=== PATIENT | male | born 1970 | race Caucasian/White ===

== ENCOUNTER 2021-03-27 18:11 | Inpatient (IN) | payer BC, OTHER ==
[~2021-03-27] VITALS: Ht 182.9 cm; Wt 135.9 kg
[2021-03-27 18:55] VITALS: BP 171/89
[2021-03-27] MEDS ORDERED: LACTATED RINGERS 1,000 ML IV STA (19:09)
[2021-03-27] MEDS ORDERED: TORADOL IV STA (19:09)
[2021-03-27] MEDS ORDERED: ZOFRAN IV STA (19:09)
--- NOTE | 2021-03-27 19:17 | ER.PDOC ---
General Chief Complaint: Abdomen Pain Stated Complaint: ABD PAIN/NAUSEA Time seen by MD: 19:12 Source: patient Exam Limitations: no limitations History of Present Illness Initial Comments Abdominal pain for 2 days. Pain is located in the epigastric region, does not radiate, no nausea or vomiting and no diarrhea. Severity/Quality: moderate, sharpness Radiation: no radiation Associated Symptoms: denies symptoms Exacerbated by: nothing Relieved By: nothing Allergies: Coded Allergies: No Known Allergies (Unverified , 03/27/21) Vital Signs First Vital Signs Date Time Temp Pulse Resp B/P (MAP) Pulse Ox O2 Delivery O2 Flow Rate FiO2 03/27/21 18:55 98.2 102 16 171/89 (116) 95 Room Air Last Vital Signs Date Time Temp Pulse Resp B/P (MAP) Pulse Ox O2 Delivery O2 Flow Rate FiO2 03/27/21 20:55 98.2 94 16 152/96 (114) 95 Room Air Past Medical History Medical History: diabetes, hypertension Surgical History: tonsillectomy Family History Significant Family History: no pertinent family hx Social History Smoking: non-smoker Alcohol Use: occassionally Drug Use: none Constitutional: no symptoms reported EENTM: no symptoms reported Respiratory: no symptoms reported Cardiovascular: no symptoms reported Gastrointestinal: see HPI All Other Systems: Reviewed and Negative Physical Exam General Appearance: No Apparent Distress, WD/WN, Obese Neck: Non-Tender, Full Range of Motion, Supple, Normal Inspection Respiratory: chest non-tender, lungs clear, normal breath sounds, no respiratory distress, no accessory muscle use Cardiovascular: Normal Peripheral Pulses, Regular Rate, Rhythm, No Edema, No Gallop, No JVD, No Murmur, Tachycardia Gastrointestinal: Normal Bowel Sounds, No Organomegaly, No Pulsatile Mass, Guarding, Tenderness (epigastric) Back: Normal Inspection, No CVA Tenderness, No Vertebral Tenderness Extremities: Normal Range of Motion, Non-Tender, Normal Inspection, No Pedal Edema, No Calf Tenderness, Normal Capillary Refill, Pelvis Stable Neurologic/Psychiatric: explosive operator II-XII NML as Tested, No Motor/Sensory Deficits, Alert, Normal Mood/Affect, Oriented x 3 Skin: Normal Color, Warm/Dry Lymphatic: No Adenopathy Results/Orders Results/Orders Orders - SANGITA KNOWLES MD Cbc With Auto Diff (03/27/21 19:09) Comprehensive Metabolic Panel (03/27/21 19:09) Lipase (03/27/21 19:09) Helicobacter Pylori (03/27/21 19:09) PT (03/27/21 19:09) Ct Abd/Pel With Iv Contrast (03/27/21 19:09) Partial Thromboplastin Time. (03/27/21 19:09) Urinalysis (03/27/21 19:09) Ringer's Solution,Lactated (Lactated Rin (03/27/21 19:09) Ketorolac Tromethamine (Toradol) (03/27/21 19:09) Ondansetron Hcl/Pf (Zofran) (03/27/21 19:09) Ekg-Routine (03/27/21 19:) Ringer's Solution,Lactated (Lactated Rin (03/27/21 19:29) Ondansetron Hcl/Pf (Zofran) (03/27/21 19:29) Ketorolac Tromethamine (Toradol) (03/27/21 19:29) Urine Culture (03/27/21 19:20) Procalcitonin (03/27/21 19:56) Lactic Acid(Ml) (03/27/21 19:56) Blood Culture (03/27/21 19:56) Vital Signs Date Time Temp Pulse Resp B/P (MAP) Pulse Ox O2 Delivery O2 Flow Rate FiO2 03/27/21 20:55 98.2 94 16 152/96 (114) 95 Room Air 03/27/21 19:55 98.2 101 16 144/54 (84) 95 Room Air 03/27/21 18:55 98.2 102 16 95 03/27/21 18:55 98.2 102 16 03/27/21 18:55 98.2 102 16 171/89 (116) 95 Room Air Administered Medications Medications (Trade) Dose Ordered Sig/Isaac Route PRN Reason Start Time Stop Time Status Last Admin Dose Admin Ketorolac Tromethamine (Toradol) 30 mg STAT STAT IV 03/27/21 19:09 03/27/21 19:13 DC 03/27/21 19:31 30 MG Ondansetron HCl (Zofran) 4 mg STAT STAT IV 03/27/21 19:09 03/27/21 19:13 DC 03/27/21 19:31 4 MG Laboratory Tests Test 03/27/21 19:20 03/27/21 19:21 03/27/21 19:35 03/27/21 20:17 Urine Collection Type RANDOM Urine Color YELLOW Urine Appearance CLEAR Urine Bilirubin NEGATIVE (NEGATIVE) Urine Ketones 40 mg/dL (NEGATIVE) H Urine Specific [place] 1.015 (1.005-1.030) Urine pH 6.5 (4.5-8.0) Urine Protein 30 mg/dL (NEGATIVE) H Urine Urobilinogen 0.2 E.U./dL (0.2) Urine Nitrate NEGATIVE (NEGATIVE) Urine Leukocyte Esterase NEGATIVE (NEGATIVE) Urine Glucose (Auto)(UA) NEGATIVE (NEGATIVE) Urine Blood NEGATIVE (NEGATIVE) Urine RBC 0-2 RBC/HPF (NONE SEEN) Urine WBC 0-2 WBC/HPF (0-2) Urine Squamous Epithelial Cells FEW #/HPF (FEW) Urine Bacteria RARE (NONE SEEN) White Blood Count 18.9 10^3/uL (4.5-11.0) H Red Blood Count 5.09 10^6/uL (4.50-5.90) Hemoglobin 14.4 g/dL (13.9-16.3) Hematocrit 42.2 % (37.0-53.0) Mean Corpuscular Volume 82.9 fL (78-100) Mean Corpuscular Hemoglobin 28.3 pg (26-34) Mean Corpuscular Hemoglobin Concent 34.1 g/dL (33-36.5) Red Cell Distribution Width 12.2 % (11.5-14.5) Platelet Count 279 10^3/uL (150-400) Mean Platelet Volume 10.3 fL (7.8-11.0) Neutrophils (%) (Auto) 82.4 % (41.0-85.0) Lymphocytes (%) (Auto) 10.4 % (24.0-44.0) L Monocytes (%) (Auto) 6.6 % (5.0-12.0) Neutrophils # (Auto) 15.6 10^3/uL (1.8-7.7) H Lymphocytes # (Auto) 1.97 10^3/uL1 (1.0-4.8) Monocytes # (Auto) 1.2 10^3/uL (0.3-0.8) H Absolute Immature Granulocyte (auto 0.05 10^3 u/L (0-2) Absolute Eosinophils (auto) 0.1 10^3/uL (0.0-0.2) Immature Granulocytes % 0.30 % (0.00-0.50) Eosinophils % 0.4 % (0.0-5.0) Basophils % 0.2 % (0.0-0.2) Basophils # 0.0 10^3/uL (0.0-0.1) Prothrombin Time 10.8 SEC (9.6-12.0) Prothrombin Time INR (Non-Therap) 1.0 Activated Partial Thromboplast Time 26.5 SEC (24.67-30.72) Sodium Level 137 mmol/L (132-145) Potassium Level 3.6 mmol/L (3.6-5.2) Chloride Level 99.0 mmol/L (96-109) Carbon Dioxide Level 26.7 mmol/L (20.0-32) Anion Gap 14.9 Blood Urea Nitrogen 9 mg/dL (7-18) Creatinine 0.90 mg/dL (0.59-1.40) Estimated GFR () 108.5 (>/=60) Est GFR (CKD-EPI)(Non-Afr [place] Citizen) 89.7 (>/=60) BUN/Creatinine Ratio 10.0 Glucose Level 177 mg/dL (70-110) H Calcium Level 9.4 mg/dL (8.4-10.5) Total Bilirubin 0.7 mg/dL (0.2-1.0) Aspartate Amino Transferase (AST) 12 U/L (0-35) Alanine Aminotransferase (ALT) 30 U/L (12-78) Alkaline Phosphatase 78 U/L (50-136) Total Protein 7.8 g/dL (6.4-8.2) Albumin 3.6 g/dL (3.4-5.0) Globulin 4.2 Albumin/Globulin Ratio 0.857 Lipase 82 U/L (114-286) L Helicobacter pylori Screen NEGATIVE (NEGATIVE) Differential Total Cells Counted 100 #CELLS Segmented Neutrophils 77 % (31-76) H Band Neutrophils 2 % (2-6) Lymphocytes 14 % (25-36) L Monocytes 7 % (3-9) Platelet Estimate ADEQUATE Platelet Morphology NORMAL Blood Morphology Comment NORMAL MORPHOLOGY Lactic Acid Level 1.2 mmol/L (0.5-1.9) Procalcitonin 0.10 ng/mL (0.05-0.5) Progress Progress CT abdomen/pelvis: Mildly amorphous hypo attenuating pancreatic head, with adjacent inflammatory change. This may represent pancreatitis in the proper clinical and laboratory setting. 2. Colonic diverticulosis. ER DEPART Departure Time of Disposition: 21:37 Disposition: 09 ADMITTED INPATIENT Impression: Primary Impression: Acute pancreatitis Additional Impressions: Leukocytosis Dehydration Hyperglycemia Condition: Stable Referrals: PCP,UNKNOWN (PCP) PRIMARY CARE PROVIDER Comments Admitted to Dr. Medrano Duration or Time Spent with Pa: 60 min Problem Qualifiers Primary Impression: Acute pancreatitis Pancreatitis type: unspecified pancreatitis type Acute pancreatitis complication: unspecified Qualified Codes: K85.90 - Acute pancreatitis without necrosis or infection, unspecified Additional Impressions: Leukocytosis Leukocytosis type: unspecified Qualified Codes: D72.829 - Elevated white blood cell count, unspecified SANGITA KNOWLES MD March 27, 2021 19:17
--- NOTE | 2021-03-27 19:19 | PCM.EKG ---
[facility] Test Date: 2021-03-27 Test Time: 19:14:57 Pat Name: SUYAPA GOLDSTEIN Department: Room: 313 Gender: M Ic Design Engineer: HELEN : [id number] Requested By: SANGITA KNOWLES Order Number: [id number] Reading MD: Sangita KNOWLES Measurements Intervals [place] Rate: 102 P: 48 WI: 178 QRS: 18 QRSD: 109 T: 28 QT: 358 QTc: 467 Interpretive Statements Sinus tachycardia Consider left atrial enlargement No previous ECG available for comparison Electronically Signed On 03-30-2021 7:30:33 CDT by Sangita KNOWLES Please click the below link to view image of tracing.
[2021-03-27] MEDS ORDERED: ZOFRAN ONE (19:29)
[2021-03-27] MEDS ORDERED: LACTATED RINGERS 1,000 ML ONE (19:29)
[2021-03-27] MEDS ORDERED: TORADOL ONE (19:29)
[2021-03-27 19:32] LABS: BASOPHIL % 0.2 % (0.0-0.2); EOSINOPHIL # 0.1 10^3/uL (0.0-0.2); EOSINOPHIL % 0.4 % (0.0-5.0); LYMPHOCYTES # 1.97 10^3/uL1 (1.0-4.8); LYMPHOCYTES % 10.4 % (24.0-44.0); MEAN CORP HGB 28.3 pg (26-34); MONOCYTES # 1.2 10^3/uL (0.3-0.8); MONOCYTES % 6.6 % (5.0-12.0); NEUTROPHIL # 15.6 10^3/uL (1.8-7.7); NEUTROPHILS % 82.4 % (41.0-85.0); PLATELET COUNT 279 10^3/uL (150-400); RED CELL DISTRIBUTION WIDTH 12.2 % (11.5-14.5)
[2021-03-27 19:45] LABS: BILIRUBIN,URINE NEGATIVE (NEGATIVE); UA COLOR YELLOW
[2021-03-27 19:46] LABS: UROBILINOGEN,URINE 0.2 E.U./dL (0.2)
[2021-03-27 19:48] LABS: CALCIUM 9.4 mg/dL (8.4-10.5); CARBON DIOXIDE 26.7 mmol/L (20.0-32)
[2021-03-27 19:55] VITALS: BP 144/54
[2021-03-27 19:55] LABS: BAND NEUTROPHILS 2 % (2-6); LYMPHOCYTE 14 % (25-36); MONOCYTE 7 % (3-9); SEGMENTED NEUTROPHILS 77 % (31-76)
--- NOTE | 2021-03-27 20:23 | DIREP ---
PROCEDURE:CT ABDOMEN/PELVIS W/ CONTRAST COMPARISON:None. INDICATIONS:Epigastric pain TECHNIQUE:Axial images were created through the abdomen and pelvis with non-ionic intravenous contrast material. No oral contrast was administered. Sagittal and coronal reconstructions were performed from source images. FINDINGS: LUNG BASES:Normal. No visible pulmonary or pleural disease. LIVER:Normal. No significant liver lesions are identified. BILIARY:Normal. No visible dilatation or calcification. PANCREAS:Mildly amorphous hypoattenuation about the pancreatic head with mild inflammatory stranding. No focal lesion otherwise noted. SPLEEN:Normal. No enlargement or focal lesion. ADRENALS:Normal. No mass or enlargement. URINARY TRACT:Normal. No focal lesions or hydronephrosis. AORTA/VASCULAR:There are aortic atherosclerotic calcifications present. No aneurysm. RETROPERITONEUM:Normal. No mass or adenopathy. BOWEL/MESENTERY:There is mild colonic diverticulosis without evidence for diverticulitis. There is no intestinal obstruction, free fluid, free air or mesenteric inflammatory changes. ABDOMINAL WALL:Normal. No mass or hernia. PELVIC ORGANS:Normal. No visible mass. Pelvic organs appropriate for patient age. BONES:Mild degenerative changes. OTHER:Negative. CONCLUSION:1. Mildly amorphous hypo attenuating pancreatic head, with adjacent inflammatory change. This may represent pancreatitis in the proper clinical and laboratory setting. 2. Colonic diverticulosis. Dictated by: Kita Mosqueda M.D. on 03/27/2021 at 08:19 PM
[2021-03-27 20:55] VITALS: BP 152/96
[2021-03-27] MEDS ORDERED: HNS 1000ML/KCL 20MEQ 1,000 ML IV STA (21:40)
[2021-03-27] MEDS ORDERED: ASPI-667 PO (21:41)
[2021-03-27] MEDS ORDERED: ATOR20TA PO (21:41)
[2021-03-27] MEDS ORDERED: HYDR12.58 PO (21:41)
[2021-03-27] MEDS ORDERED: METF10007 PO (21:41)
[2021-03-27] MEDS ORDERED: SITA100T PO (21:41)
[2021-03-27 21:52] VITALS: BP 165/98
[2021-03-27] MEDS ORDERED: HNS 1000ML/KCL 20MEQ 1,000 ML ONE (21:55)
[2021-03-27] MEDS ORDERED: MORPHINE SULFATE IV PRN (22:00)
[2021-03-27] MEDS ORDERED: ZOFRAN IV PRN (22:00)
--- NOTE | 2021-03-27 22:00 | NUR ---
REPORT GIVEN TO [facility]
[2021-03-27 22:44] VITALS: BP 123/54
[2021-03-28] VITALS (7 sets, daily range): BP systolic 117–144; BP diastolic 52–86
--- NOTE | 2021-03-28 02:01 | PCM.HP ---
History of Present Illness Hx of Present Illness Mister Yung is a 50-year-old gentleman with a history of diabetes mellitus and hypertension. He works as a truck washer. He is from [place]. 2 days ago noticed some abdominal discomfort and back pain. The progressively worsened and he did have some breakfast with his of 40 0 Prolene cough to [place]. His abdominal pain progressively worsened and was in the epigastric region and had gone up to 8-9 out of 10. He did have 1 episode of dry heaving. Denies any abdominal trauma. Has not had any recent alcohol. The last time he drank was about a month ago when he 2 shots wisky. He says that his lipase level had been elevated the last number was 214. Patient is on hydrochlorothiazide for quite some time also on Januvia and metformin none of these are new medications. Patient comes to the emergency room for further evaluation, CT of the abdomen was done which showed inflammation of the head of the pancreas. Lipase level checked To be fine LFTs also checked fine. Patient did get a dose of Toradol 15 mg and the pain has come down from a 9 out of 10-5 out of 10 in intensity much better. Patient would prefer not to take narcotics given his profession as a truck washer. He denies any chest pain shortness of breath. Denies any weight loss bowel movements are regular denies any dysuria. Vaccines/Immunizations up-to-d: Yes Travel History EBOLA RISK:Travel to/contact w: No Is pt experiencing any Ebola s: No Review of Systems Gastrointestinal: Nausea, Abdominal Pain Allergies: Coded Allergies: No Known Allergies (Unverified , 03/27/21) Scheduled Aspirin (Aspirin), 1 TAB PO DAILY, (Reported) Atorvastatin 20MG (Lipitor 20MG), 1 TAB PO DAILY, (Reported) Hydrochlorothiazide (Hydrochlorothiazide), 1 TAB PO DAILY, (Reported) Metformin Hcl (Metformin Hcl), 1 TAB PO BID, (Reported) Sitagliptin Phosphate (Januvia), 1 TAB PO DAILY, (Reported) Exam General Appearance: Alert, Oriented X3, Cooperative, No acute distress HEENT: Atraumatic, PERRLA, EOMI, Mucous membr. moist/pink Respiratory: Clear to auscultation, Normal air movement Cardiovascular: Regular rate, Normal S1, Normal S2, No murmurs Abdominal: Normal bowel sounds, Soft, No tenderness (mild epigastric tenderness,no gaurding) LABS LAB RESULTS Laboratory Tests Test 03/27/21 19:20 03/27/21 19:21 03/27/21 19:35 03/27/21 20:17 Urine Collection Type RANDOM Urine Color YELLOW Urine Appearance CLEAR Urine Bilirubin NEGATIVE (NEGATIVE) Urine Ketones 40 mg/dL (NEGATIVE) Urine Specific [place] 1.015 (1.005-1.030) Urine pH 6.5 (4.5-8.0) Urine Protein 30 mg/dL (NEGATIVE) Urine Urobilinogen 0.2 E.U./dL (0.2) Urine Nitrate NEGATIVE (NEGATIVE) Urine Leukocyte Esterase NEGATIVE (NEGATIVE) Urine Glucose (Auto)(UA) NEGATIVE (NEGATIVE) Urine Blood NEGATIVE (NEGATIVE) Urine RBC 0-2 RBC/HPF (NONE SEEN) Urine WBC 0-2 WBC/HPF (0-2) Urine Squamous Epithelial Cells FEW #/HPF (FEW) Urine Bacteria RARE (NONE SEEN) White Blood Count 18.9 10^3/uL (4.5-11.0) Red Blood Count 5.09 10^6/uL (4.50-5.90) Hemoglobin 14.4 g/dL (13.9-16.3) Hematocrit 42.2 % (37.0-53.0) Mean Corpuscular Volume 82.9 fL (78-100) Mean Corpuscular Hemoglobin 28.3 pg (26-34) Mean Corpuscular Hemoglobin Concent 34.1 g/dL (33-36.5) Red Cell Distribution Width 12.2 % (11.5-14.5) Platelet Count 279 10^3/uL (150-400) Mean Platelet Volume 10.3 fL (7.8-11.0) Neutrophils (%) (Auto) 82.4 % (41.0-85.0) Lymphocytes (%) (Auto) 10.4 % (24.0-44.0) Monocytes (%) (Auto) 6.6 % (5.0-12.0) Neutrophils # (Auto) 15.6 10^3/uL (1.8-7.7) Lymphocytes # (Auto) 1.97 10^3/uL1 (1.0-4.8) Monocytes # (Auto) 1.2 10^3/uL (0.3-0.8) Absolute Immature Granulocyte (auto 0.05 10^3 u/L (0-2) Absolute Eosinophils (auto) 0.1 10^3/uL (0.0-0.2) Immature Granulocytes % 0.30 % (0.00-0.50) Eosinophils % 0.4 % (0.0-5.0) Basophils % 0.2 % (0.0-0.2) Basophils # 0.0 10^3/uL (0.0-0.1) Prothrombin Time 10.8 SEC (9.6-12.0) Prothrombin Time INR (Non-Therap) 1.0 Activated Partial Thromboplast Time 26.5 SEC (24.67-30.72) Sodium Level 137 mmol/L (132-145) Potassium Level 3.6 mmol/L (3.6-5.2) Chloride Level 99.0 mmol/L (96-109) Carbon Dioxide Level 26.7 mmol/L (20.0-32) Anion Gap 14.9 Blood Urea Nitrogen 9 mg/dL (7-18) Creatinine 0.90 mg/dL (0.59-1.40) Estimated GFR () 108.5 (>/=60) Est GFR (CKD-EPI)(Non-Afr [place]) 89.7 (>/=60) BUN/Creatinine Ratio 10.0 Glucose Level 177 mg/dL (70-110) Calcium Level 9.4 mg/dL (8.4-10.5) Total Bilirubin 0.7 mg/dL (0.2-1.0) Aspartate Amino Transf (AST/SGOT) 12 U/L (0-35) Alanine Aminotransferase (ALT/SGPT) 30 U/L (12-78) Alkaline Phosphatase 78 U/L (50-136) Total Protein 7.8 g/dL (6.4-8.2) Albumin 3.6 g/dL (3.4-5.0) Globulin 4.2 Albumin/Globulin Ratio 0.857 Lipase 82 U/L (114-286) Helicobacter pylori Screen NEGATIVE (NEGATIVE) Differential Total Cells Counted 100 #CELLS Segmented Neutrophils 77 % (31-76) Band Neutrophils 2 % (2-6) Lymphocytes 14 % (25-36) Monocytes 7 % (3-9) Platelet Estimate ADEQUATE Platelet Morphology NORMAL Blood Morphology Comment NORMAL MORPHOLOGY Lactic Acid Level 1.2 mmol/L (0.5-1.9) Procalcitonin 0.10 ng/mL (0.05-0.5) Assessment/Plan Assessment/Plan Assessment/Plan This is a 50-year-old gentleman who comes in with a two-day history of abdominal pain. CT of the abdomen shows inflammation of the head of the pancreas. Interestingly his lipase level checks out fine. Patient is not an alcoholic and has not had been drinking about a month's time. Has not had any abdominal trauma. We'll check a lipase level in am. Patient's LFTs to be fine making it less likely due to common bile stone. Patient is on Januvia which can cause pancreatitis that is to be held. Patient will be treated for nothing by mouth except medicines. Lipase level to be rechecked in the morning. Hypertension we'll resume hydrochlorothiazide. Leukocytosis patient does not have any respiratory symptoms urinalysis CHECKED to be fine this could be just reactionary in nature we will check another white blood cell count in the morning. For diabetes mellitus we'll check a hemoglobin A1c and cover with sliding scale insulin. He probably may need to go back to his PCP to get started on any other drug that does not cause hypoglycemia. For DVT prophylaxis start patient on Lovenox GI prophylaxis patient to be started on Protonix. I expect patient being in the hospital or less than 48 hours VTE VTE Risk Total Score: 2 VTE Risk Score VTE Risk: Score 0-1 = Low Risk (Aggressive mobilization; early ambulation; no VTE prophylaxis required) Score 2: Moderate Risk (Intermittent/Pneumatic Compression Device OR Lovenox/Heparin/Coumadin) Score 3-4: High Risk (Intermittent/Pneumatic Compression Device AND Lovenox/Heparin/Coumadin) Score > or =5: Highest Risk (Intermittent/Pneumatic Compression Device AND Lovenox/Heparin/Coumadin) Antico:Hep/LMWH/Coum/Xarelto: Yes Mechanical device ordered: No Duration Duration or Time Spent with Pa: 35 min ASIA GALVAN MD March 28, 2021 02:01
[2021-03-28] MEDS ORDERED: DEXTROSE 50%-WATER SYRINGE IV PRN (03:30)
[2021-03-28] MEDS ORDERED: TYLENOL PO PRN (03:30)
[2021-03-28] MEDS ORDERED: MYLANTA PO PRN (03:30)
[2021-03-28] MEDS: TORADOL IV PRN ×2 (03:40→17:33)
[2021-03-28] MEDS: D5W-1/2NS 1000ML 1,000 ML IV SCH ×2 (03:45→20:27)
[2021-03-28 05:33] LABS: BASOPHIL % 0.3 % (0.0-0.2); EOSINOPHIL # 0.2 10^3/uL (0.0-0.2); EOSINOPHIL % 1.1 % (0.0-5.0); LYMPHOCYTES # 2.08 10^3/uL1 (1.0-4.8); LYMPHOCYTES % 13.5 % (24.0-44.0); MEAN CORP HGB 28.3 pg (26-34); MONOCYTES # 1.2 10^3/uL (0.3-0.8); MONOCYTES % 7.4 % (5.0-12.0); NEUTROPHILS % 77.5 % (41.0-85.0); PLATELET COUNT 294 10^3/uL (150-400); RED CELL DISTRIBUTION WIDTH 12.3 % (11.5-14.5)
[2021-03-28] MEDS: HUMULIN R SQ SCH ×4 (06:00→21:17)
[2021-03-28] MEDS ORDERED: HYDROCHLOROTHIAZIDE PO SCH (09:00)
[2021-03-28] MEDS: HYDROCHLOROTHIAZIDE PO SCH (09:56)
[2021-03-28] MEDS: PROTONIX IV IV SCH (09:56)
[2021-03-28] MEDS: LOVENOX SQ SCH (09:58)
[2021-03-29 04:00] VITALS: BP 127/57
[2021-03-29 05:41] LABS: BASOPHIL # 0.1 10^3/uL (0.0-0.1); BASOPHIL % 0.4 % (0.0-0.2); EOSINOPHIL # 0.3 10^3/uL (0.0-0.2); EOSINOPHIL % 2.3 % (0.0-5.0); LYMPHOCYTES # 2.13 10^3/uL1 (1.0-4.8); LYMPHOCYTES % 17.1 % (24.0-44.0); MEAN CORP HGB 28.9 pg (26-34); MONOCYTES % 7.8 % (5.0-12.0); NEUTROPHILS % 72.4 % (41.0-85.0); PLATELET COUNT 255 10^3/uL (150-400)
[2021-03-29 05:56] LABS: CALCIUM 8.5 mg/dL (8.4-10.5); CARBON DIOXIDE 28.5 mmol/L (20.0-32)
[2021-03-29 07:20] VITALS: BP 145/89
[2021-03-29] MEDS ORDERED: HUMULIN R SQ SCH (08:30)
[2021-03-29] MEDS: HYDROCHLOROTHIAZIDE PO SCH (08:52)
[2021-03-29] MEDS: PROTONIX IV IV SCH (08:52)
[2021-03-29] MEDS: LOVENOX SQ SCH (08:52)
[2021-03-29] MEDS: D5W-1/2NS 1000ML 1,000 ML IV SCH (08:55)
[2021-03-29] MEDS ORDERED: PANT40TA3 PO (10:40)
--- NOTE | 2021-03-29 10:48 | PRM.DC ---
Discharge Summary Date of Discharge: March 29, 2021 Time of Request to Discharge: 11:00 Hospital Course 50-year-old gentleman with a history of diabetes mellitus and hypertension. He works as a industrial truck mechanic. He is from [place]. 2 days ago noticed some abdominal discomfort and back pain. The progressively worsened and he did have some breakfast with his of 40 0 Prolene cough to [place]. His abdominal pain progressively worsened and was in the epigastric region and had gone up to 8-9 out of 10. He did have 1 episode of dry heaving. Denies any abdominal trauma. Has not had any recent alcohol. The last time he drank was about a month ago when he 2 shots wisky. He says that his lipase level had been elevated the last number was 214. Patient is on hydrochlorothiazide for quite some time also on Januvia and metformin none of these are new medications. Patient comes to the emergency room for further evaluation, CT of the abdomen was done which showed inflammation of the head of the pancreas. Patient was started on IV fluids, kept n.p.o., Januvia was discontinued. Patient started improving, diet being advanced. Tolerating diet this morning. Patient wants to go home. Instructions to the patient to discontinue Januvia and to follow-up with his primary care physician for replacement by his primary care physician. Patient said that he will call his primary care physician today for updating him and guidance regarding diabetic management. Patient discharged in stable condition. Prescription for pantoprazole was given. Activity as tolerated. Follow-up with primary care physician as soon as possible. General: Alert, Oriented X3 HEENT: Atraumatic, PERRLA Neck: Supple, No JVD Lungs: Clear to auscultation, Normal air movement Heart: Regular rate, Normal S1, Normal S2 Abdomen: Normal bowel sounds, Soft Extremities: No clubbing, No cyanosis, No edema Skin: No rashes, No significant lesion Neuro: Normal gait, Normal speech Psych/Mental Status: Mental status NL Scheduled Aspirin (Aspirin), 1 TAB PO DAILY, (Reported) Atorvastatin 20MG (Lipitor 20MG), 1 TAB PO DAILY, (Reported) Hydrochlorothiazide (Hydrochlorothiazide), 1 TAB PO DAILY, (Reported) Metformin Hcl (Metformin Hcl), 1 TAB PO BID, (Reported) Pantoprazole Sodium (Protonix), 40 MG PO DAILY24 Sitagliptin Phosphate (Januvia), 1 TAB PO DAILY, (Reported) Sepsis Evaluation @ Discharge 03/28/21 10:00 Plan Assessment Acute pancreatitis Diabetes mellitus type 2 Hypertension Plan Discharge home Discontinue Januvia Prescription for pantoprazole Follow-up with primary care physician as early as possible diabetic management. Patient is discharged stable condition. Spine diet diabetic Activity as tolerated. Follow-up with primary care physician as early as possible time spent discharge patient 65 minutes. Discharge Date: March 29, 2021 Discharge Disposition: Stable JUDE WOMACK MD March 29, 2021 10:48
[2021-03-29 17:30] VITALS: BP 127/57
== END 2021-03-29 12:34 | disposition home or self-care (01) | DRG 440 ==
LOC: ER 18:11 → OBSVTOIN 21:41 → UNDOADMOB 21:41 → MS 21:41 → INTOOBSV 21:41
PROVIDERS: ADMIT Hospitalist; ATTEND Hospitalist
DX: K85.90 Acute pancreatitis without necrosis or infection, unspecified (principal); I10 Essential (primary) hypertension; E11.9 Type 2 diabetes mellitus without complications; Z79.82 Long term (current) use of aspirin; Z79.84 Long term (current) use of oral hypoglycemic drugs; Z79.899 Other long term (current) drug therapy
CPT/HCPCS: 36415; 74177; 80053; 80061; 81000; 81003; 82948; 83036; 83605; 83690; 84145; 85025; 85610; 85730; 86677; 87040; 87086; 93005; 99285; C9113; G0378; J1650; J1815; J1885; J2405; J7030; J7120; Q9965